=== PATIENT | female | born 1995 | race Caucasian/White ===

== ENCOUNTER 2018-10-02 20:31 | Emergency (ER) | payer BC ==
[~2018-10-02] VITALS: Ht 167.6 cm; Wt 109.8 kg
[2018-10-02 20:36] VITALS: Ht 167.6 cm; Wt 109.8 kg
[2018-10-02 22:35] VITALS: BP 154/109
== END 2018-10-02 22:27 | disposition home or self-care (01) ==
LOC: ED 20:31
DX: G51.0 Bell's palsy (principal)
CPT/HCPCS: J7512